=== PATIENT | male | born 1965 | race American Indian/Alaskan Native ===

== ENCOUNTER 2017-08-15 16:02 | Emergency (ER) | payer OTHER ==
[2017-08-15 20:37] LABS: Basophils % (Auto) 0.4 % (0.0-1.8); Hematocrit 47.3 % (35.5-45.6); Hemoglobin 15.7 gm/dl (11.8-15.2); Lymphocytes # (Auto) 0.4 K/mm3 (1.2-5.4); Lymphocytes % (Auto) 10.9 % (13.4-35.0); Mean Corpuscular HGB Conc 33 % (32-34); Mean Corpuscular Hemoglobin 31 pg (28-32); Mean Corpuscular Volume 94 fl (84-94); Monocytes # (Auto) 0.3 K/mm3 (0.0-0.8); Monocytes % (Auto) 8.2 % (0.0-7.3); Platelet Count 178 K/mm3 (140-440); Red Blood Count 5.03 M/mm3 (3.65-5.03); Red Cell Distribution Width 12.5 % (13.2-15.2)
[2017-08-15 20:50] LABS: Alanine Aminotransferase 14 units/L (7-56); Albumin 4.3 g/dL (3.9-5); BUN/Creatinine Ratio 11; Blood Urea Nitrogen 11 mg/dL (9-20); Calcium 8.4 mg/dL (8.4-10.2); Hemolysis Index 7
--- NOTE | 2017-08-15 22:46 | XRay Report ---
FINAL REPORT PROCEDURE: XR CHEST ROUTINE 2V TECHNIQUE: PA and lateral chest radiographs were obtained. CPT 00522 HISTORY: rib pain COMPARISON: No prior studies are available for comparison. FINDINGS: Heart: Normal. Mediastinum/Vessels: Normal. Lungs/Pleural space: Normal. Bony thorax: No acute osseous abnormality. Other: IMPRESSION: Normal examination.
[2017-08-16 00:53] LABS: Bilirubin,Urine NEG (Negative); Blood,Urine SM (Negative); Calcium Oxalate Crystals,Urine 1+; Color,Urine Amber (Yellow); Hyaline Casts,Urine 5 /LPF; Mucus,Urine 2+ /HPF; Nitrite,Urine NEG (Negative); Urobilinogen,Urine < 2.0 mg/dL (<2.0)
[2017-08-16] MEDS ORDERED: NACL 0.9% 1000 ML 1,000 ML IV ONE (01:40)
[2017-08-16] MEDS ORDERED: LOMOTIL PO ONE (01:40)
[2017-08-16] MEDS ORDERED: BENTYL IM ONE (01:40)
--- NOTE | 2017-08-16 01:40 | Emergency Department Report ---
ED General Adult HPI - General Chief complaint: Nausea/Vomiting/Diarrhea Stated complaint: DIARRHEA Time Seen by Provider: 08/16/17 01:33 Source: patient Mode of arrival: Ambulatory Limitations: No Limitations - History of Present Illness Initial comments: Patient is a 52-year-old [place] male who is presenting with cough cold congestion and large amounts of diarrhea today. Patient's and his state that his cough cold congestion started approximately near Thanksgiving which is a muffin 2 weeks ago. Patient has has had a cough that has been mostly dry but has periods of being productive off and on. Patient has had intermittent fevers and sore throat and body aches throughout this period. This is diarrhea started today he's had greater than 10 episodes of watery diarrhea. Patient's had a low-grade temperature. Patient did call his primary physician yesterday and was prescribed Tamiflu. Patient denies any sore throat headache nausea vomiting at this time. Patient states his only discomfort is in the right lower ribs when he coughs. Patient has no other complaints at this time. - Related Data Previous Rx's Medication Instructions Recorded Last Taken Type Dicyclomine [Bentyl] 20 mg PO QID #14 tablet 08/16/17 Unknown Rx Diphenoxylate/Atropine [Lomotil] 1 tab PO Q4H PRN #10 tablet 08/16/17 Unknown Rx Doxycycline [Vibramycin CAP] 100 mg PO Q12HR #14 capsule 08/16/17 Unknown Rx Ondansetron [Zofran Odt] 4 mg PO Q8HR #7 tab.rapdis 08/16/17 Unknown Rx Allergies Allergy/AdvReac Type Severity Reaction Status Date / Time Penicillins Allergy Anaphylaxis Verified 08/15/17 19:19 Sulfa (Sulfonamide Allergy Anaphylaxis Verified 08/15/17 19:19 Antibiotics) ED Review of Systems ROS: Stated complaint: DIARRHEA Other details as noted in HPI Comment: All other systems reviewed and negative ED Past Medical Hx - Past Medical History Previous Medical History?: No - Surgical History Past Surgical History?: No - Social History Smoking Status: Never Smoker Substance Use Type: Alcohol - Medications Home Medications: Home Medications Medication Instructions Recorded Confirmed Last Taken Type Dicyclomine [Bentyl] 20 mg PO QID #14 tablet 08/16/17 Unknown Rx Diphenoxylate/Atropine [Lomotil] 1 tab PO Q4H PRN #10 tablet 08/16/17 Unknown Rx Doxycycline [Vibramycin CAP] 100 mg PO Q12HR #14 capsule 08/16/17 Unknown Rx Ondansetron [Zofran Odt] 4 mg PO Q8HR #7 tab.rapdis 08/16/17 Unknown Rx ED Physical Exam - General Limitations: No Limitations General appearance: alert, in no apparent distress - Head Head exam: Present: atraumatic, normocephalic - Eye Eye exam: Present: normal appearance - ENT ENT exam: Present: mucous membranes moist - Neck Neck exam: Present: normal inspection - Respiratory Respiratory exam: Present: normal lung sounds bilaterally. Absent: respiratory distress - Cardiovascular Cardiovascular Exam: Present: regular rate, normal rhythm. Absent: systolic murmur, diastolic murmur, rubs, gallop - GI/Abdominal GI/Abdominal exam: Present: soft, normal bowel sounds - Rectal Rectal exam: Present: deferred - Extremities Exam Extremities exam: Present: normal inspection - Back Exam Back exam: Present: normal inspection - Neurological Exam Neurological exam: Present: alert, oriented X3 - Psychiatric Psychiatric exam: Present: normal affect, normal mood - Skin Skin exam: Present: warm, dry, intact, normal color. Absent: rash ED Course Vital Signs 08/15/17 08/16/17 08/16/17 19:21 01:09 02:00 Temperature 99.1 F 99.4 F Pulse Rate 102 H 85 95 H Respiratory 16 12 14 Rate Blood Pressure 113/73 111/78 Blood Pressure 123/80 [Left] O2 Sat by Pulse 96 99 97 Oximetry ED Medical Decision Making - Lab Data Result diagrams: 08/15/17 19:56 08/15/17 19:56 - Radiology Data Radiology results: report reviewed, image reviewed interpreted by me: No acute process - Medical Decision Making The patient is a 52-year-old -[place] male who is presenting with cough cold congestion as well as diarrhea. Patient was medicated and stomach does feel better. Patient was hydrated. Patient will be discharged home Critical care attestation.: If time is entered above; I have spent that time in minutes in the direct care of this critically ill patient, excluding procedure time. ED Disposition Clinical Impression: Bronchitis, Gastroenteritis Disposition: - TO HOME OR SELFCARE Is pt being admited?: No Does the pt Need Aspirin: No Condition: Fair Instructions: Acute Bronchitis (ED), Gastroenteritis (ED) Prescriptions: Dicyclomine [Bentyl] 20 mg PO QID #14 tablet Diphenoxylate/Atropine [Lomotil] 1 tab PO Q4H PRN #10 tablet PRN Reason: Diarrhea Doxycycline [Vibramycin CAP] 100 mg PO Q12HR #14 capsule Ondansetron [Zofran Odt] 4 mg PO Q8HR #7 tab.rapdis Referrals: LUIS KRUEGER MD [Primary Care Provider] - 3-5 Days
[2017-08-16 02:56] VITALS: BP 111/78
== END 2017-08-16 04:20 | disposition home or self-care (01) ==
LOC: ED 16:02
DX: K52.9 Noninfective gastroenteritis and colitis, unspecified (principal); J40 Bronchitis, not specified as acute or chronic
CPT/HCPCS: 36415; 71046; 80053; 81001; 85025; 96360; 96372; 99284; J0500; J7030